=== PATIENT | male | born 1995 | race Caucasian/White ===

== ENCOUNTER 2016-05-14 18:56 | Emergency (ER) | payer SELFPAY ==
[~2016-05-14] VITALS: Ht 188 cm; Wt 63.0 kg
[~2016-05-14 18:56] MED LIST: PERC5TAB12 PO
[2016-05-14 19:10] VITALS: BP 119/84; PULSE 113; RESP 18; TEMP 98.9; O2SAT 99
== END 2016-05-14 21:07 | disposition left against medical advice (07) ==
LOC: PHED 18:56
DX: S69.91XA Unspecified injury of right wrist, hand and finger(s), initial encounter (principal); X58.XXXA Exposure to other specified factors, initial encounter; Z53.21 Procedure and treatment not carried out due to patient leaving prior to being seen by health care provider
CPT/HCPCS: 99281

== ENCOUNTER 2017-07-23 02:44 | Emergency (ER) | payer SELFPAY ==
[~2017-07-23] VITALS: Ht 185.4 cm; Wt 68.7 kg
[2017-07-23 02:46] VITALS: BP 116/73; PULSE 64; RESP 18; TEMP 97.6; O2SAT 99
[2017-07-23 02:57] VITALS: BP 116/73; PULSE 64; RESP 18; O2SAT 99
[2017-07-23 03:19] LABS: BILIRUBIN, URINE NEG (NEG); BLOOD, URINE NEG (NEG); GLUCOSE,URINE NEG (NEG); KETONE, URINE NEG (NEG); NITRITE,URINE NEG (NEG); URINE COLOR YELLOW (YELLW/STRAW); URINE LEUKOCYTE ESTERASE NEG (NEG)
[2017-07-23 03:23] LABS: RBC, URINE 0-3 /hpf (0-3); SQUAMOUS EPITHELIAL CELL URINE 0-5 /hpf (0-5); WBC, URINE 15-19 /hpf (0-5)
--- NOTE | 2017-07-23 03:42 | PD ---
HPI Chief Complaint: Complaint Time Seen by Provider: 03:36 Travel History International Travel<30 days: No Contact w/Intl Traveler<30days: No Traveled to known affect area: No History of Present Illness HPI 21-year-old male presents to the emergency department for complaint of urinary there has had no symptoms. Patient reports partner was recently evaluated for STI which was reportedly negative. Patient's had no fever chills. Patient denies any abdominal pain or suprapubic pressure. Patient denies any penile discharge scrotal pain scrotal edema or testicular pain. Patient denies any injury. Past medical history is significant for inguinal herniorrhaphy. Patient takes no prescription medications. Patient rates discomfort 0-4/10. Patient is unable to identify exacerbating or alleviating factors. PFS Past Medical History Narrative Medical Asthma GERD inguinal herniorrhaphy occasional alcohol use; nursing notes reviewed Asthma: Yes Developmental Delay: No Diminished Hearing: No GERD: Yes Inguinal Hernia: Yes ( A BABY) Immunizations Current: No Past Surgical History Other Surgery: Yes (BILATERAL INGUINAL HERNIA REPAIR IN [facility]) Social History Alcohol Use: Yes ([facility]) Tobacco Use: No Substance Use: No Allergies-Medications (Allergen,Severity, Reaction): Coded Allergies: No Known Allergies (Verified , 05/14/16) Reported Meds & Prescriptions Reported Meds & Active Scripts Active No Active Prescriptions or Reported Medications Review of Systems Except as stated in HPI: all other systems reviewed are Neg Physical Exam Narrative GENERAL: Well-developed well-nourished male no acute distress no respiratory distress SKIN: Warm and dry. HEAD: Normocephalic. EYES: No scleral icterus. No injection or drainage. NECK: Supple, trachea midline. No JVD or lymphadenopathy. CARDIOVASCULAR: Regular rate and rhythm without murmurs, gallops, or rubs. RESPIRATORY: Breath sounds equal bilaterally. No accessory muscle use. GASTROINTESTINAL: Abdomen soft, non-tender, nondistended. Data Data Last Documented VS Vital Signs Date Time Temp Pulse Resp B/P (MAP) Pulse Ox O2 Delivery O2 Flow Rate FiO2 07/23/17 02:57 64 18 116/73 (87) 99 07/23/17 02:46 97.6 Orders Orders Urinalysis - C+S If Indicated (07/23/17 03:04) Urine Culture (07/23/17 03:10) Gc And Chlamydia Pcr (07/23/17 03:36) Ceftriaxone Inj (Rocephin Inj) (07/23/17 03:45) Sodium Chloride 0.9% Flush (Ns Flush) (07/23/17 03:45) Lidocaine 1% Inj (50 Ml) (Xylocaine 1% I (07/23/17 03:45) Azithromycin (Zithromax) (07/23/17 03:45) Ed Discharge Order (07/23/17 03:58) Lidocaine Pf 1% Inj (Xylocaine-Mpf 1% In (07/23/17 04:01) Labs Laboratory Tests Test 07/23/17 03:10 Urine Color YELLOW Urine Turbidity CLEAR Urine pH 6.0 Urine Specific [place] 1.020 Urine Protein NEG mg/dL Urine Glucose (UA) NEG mg/dL Urine Ketones NEG mg/dL Urine Occult Blood NEG Urine Nitrite NEG Urine Bilirubin NEG Urine Urobilinogen 0.2 MG/DL Urine Leukocyte Esterase NEG Urine RBC 0-3 /hpf Urine WBC 15-19 /hpf Urine Squamous Epithelial Cells 0-5 /hpf Urine Bacteria NONE /hpf Microscopic Urinalysis Comment CULTURE INDICATED MDM Medical Decision Making Medical Screen Exam Complete: Yes Emergency Medical Condition: Yes Medical Record Reviewed: Yes Interpretation(s) UA: 15-19 wbc's ; cx indicated Differential Diagnosis Dysuria, UTI, STI, urethritis, epididymoorchitis Narrative Course Urinalysis shows white blood cells culture indicated; PCR GC chlamydia added; patient will be treated presumptively for urethritis Patient voices no other concerns or complaints. Discussed patient's abstinence. Patient is encouraged to return the emergency department for any concerns or change in condition. Diagnosis Primary Impression: Urethritis Referrals: Primary Care Physician 2 days Patient Instructions: General Instructions Additional Instructions: Increase fluid hydration Remain sexually abstinent 7 days Have partner evaluated and treated Return to the emergency department for concerns or change in condition Scripts No Active Prescriptions or Reported Meds Disposition: 01 DISCHARGE HOME Condition: Stable Shauna Salgado MD Jul 23, 2017 03:42
[2017-07-23] MEDS: LIDOCAINE HCL 1% 50 ML VIAL XX ONE (03:45)
[2017-07-23] MEDS ORDERED: cefTRIAXone 250 MG VIAL IM ONE (03:45)
[2017-07-23] MEDS ORDERED: AZITHROMYCIN 250 MG TAB PO ONE (03:45)
[2017-07-23] MEDS ORDERED: SODIUM CHLORIDE 0.9% FLUSH 10 ML FLUSH IVF PRN (03:45)
[2017-07-23] MEDS ORDERED: LIDOCAINE HCL 1% PF 2 ML VIAL ONE (04:01)
[2017-07-23 04:40] VITALS: BP 106/69
== END 2017-07-23 04:40 | disposition home or self-care (01) ==
LOC: PHED 02:44
DX: N34.2 Other urethritis (principal); J45.909 Unspecified asthma, uncomplicated; K21.9 Gastro-esophageal reflux disease without esophagitis
CPT/HCPCS: 81001; 87086; 87491; 87591; 96372; 99283; J0696